=== PATIENT | female | born 1965 | race Caucasian/White ===

== ENCOUNTER → 2018-06-05 | Outpatient (CLI) | payer OTHER | LOC: MAMMO 08:07 | PROVIDERS: ATTEND Obstetrics & Gynecology | DX: Z12.31 Encounter for screening mammogram for malignant neoplasm of breast (principal) | CPT/HCPCS: 77067 ==

== ENCOUNTER 2019-05-16 18:59 | Emergency (ER) | payer BC, OTHER ==
[~2019-05-16] VITALS: Ht 157.5 cm; Wt 99.8 kg
--- OUTSIDE RECORDS SUMMARY | 2019-05-16 19:03 | XMS REPORT ---
[facility] Address Unknown Phone Unavailable Care Team Providers Care Wedding Coordinator Name Role Phone Ming DALY Unavailable Unavailable TIMO, CHIQUI Unavailable Unavailable Problems This patient has no known problems. Allergies, Adverse Reactions, Alerts This patient has no known allergies or adverse reactions. Medications This patient has no known medications. Results Test Description Test Time Test Comments Text Results Atomic Results Result Comments MAMMOGRAPHY DIGITAL SCR BILAT 2018-06-05 09:37:00 [place] [address] Patient Name: SELINA VALENZUELA MR #: [id number] : 1965 Age/Sex: 52/F Req #: [id number] Adm Physician: Ordered by: TIFFANIE DALY M.D. Report #: [id number] Location: MAMMO Room/Bed: Procedure: [id number] MG/MAMMOGRAPHY DIGITAL SCR BILAT Exam Date: 06/05/18 Exam Time: 0900 REPORT STATUS: Signed #[id number] - MGSCRBIL #BILATERAL DIGITAL SCREENING MAMMOGRAM WITH CAD: 06/05/2018 CLINICAL: Routine screening. Comparison is made to exams dated: 05/29/2017 mammogram and 05/15/2016 mammogram - [facility]. Current study contains 4 films. The tissue of both breasts is heterogeneously dense. This may lower the sensitivity of mammography. Current study was also evaluated with a Computer Aided Detection (CAD) system. There are benign calcifications in both breasts. There also are benign densities in both breasts. Additionally there is a biopsy clip in the right breast. No significant masses, calcifications, or other findings are seen in either breast. There has been no significant interval change. IMPRESSION: BENIGN There is no mammographic evidence of malignancy. A 1 year screening mammogram is recommended. The patient will be notified by letter of the results. Reta Tomlin Jr., D.O. cw/:06/10/2018 11:44:31 Special Education Math Teacher: Lyndsay MARMOLEJO)(Donald), [facility] letter sent: Compared to Prior B9 Mammogram BI-RADS: 2 Benign Dictated By: RETA TOMLIN DO 1144 Transcribed By: KEERTHI on 06/10/18 1144 COPY TO: TIFFANIE DALY M.D. MAMMOGRAPHY DIGITAL SCR BILAT [place] [address] Patient Name: SELINA VALENZUELA MR #: [id number] : 1965 Age/Sex: 51/F Req #: [id number] [facility] Physician: Ordered by: CHIQUI GREENWOOD MD Report #: [id number] Location: MAMMO Room/Bed: Procedure: [id number] MG/MAMMOGRAPHY DIGITAL SCR BILAT Exam Date: 05/29/17 Exam Time: 0810 REPORT STATUS: Signed #[id number] - MGSCRBIL #BILATERAL DIGITAL SCREENING MAMMOGRAM WITH CAD: 05/29/2017 CLINICAL: Routine screening. Comparison is made to exams dated: 05/15/2016 mammogram, 05/09/2015 mammogram and 05/09/2014 mammogram - [facility]. Current study contains 5 films. The tissue of both breasts is heterogeneously dense. This may lower the sensitivity of mammography. Current study was also evaluated with a Computer Aided Detection (CAD) system. There are benign calcifications in both breasts. There also are benign densities in both breasts. Additionally there is a biopsy clip in the right breast. No significant masses, calcifications, or other findings are seen in either breast. There has been no significant interval change. IMPRESSION: BENIGN The re is no mammographic evidence of malignancy. A 1 year screening mammogram is recommended. The patient will be notified by letter of the results. Reta kimbrough/keerthi:06/04/2017 08:35:09 Special Education Math Teacher: Lyndsay BLOCK(R)(M), [facility] letter sent: Compared to Prior B9 Mammogram BI-RADS: 2 Benign Dictated By: RETA TOMLIN DO Transcribed By: KEERTHI on 06/04/17834 COPY TO: CHIQUI GREENWOOD MD
[2019-05-16] MEDS ORDERED: KETOROLAC TROMETHAMINE 60 MG/2 ML VIAL ONE (19:30)
[2019-05-16] MEDS: KETOROLAC TROMETHAMINE 60 MG/2 ML VIAL IM ONE (19:30)
[2019-05-16] MEDS: DIPHENHYDRAMINE HCL 25 MG CAP PO ONE (19:49)
[2019-05-16] MEDS ORDERED: DIPHENHYDRAMINE HCL 25 MG CAP ONE (19:50)
[2019-05-16] MEDS ORDERED: CYCLOBENZAPRINE HCL 10 MG TAB ONE (20:46)
[2019-05-16] MEDS ORDERED: HYDROCODONE/APAP 5MG-325MG TAB ONE (20:47)
[2019-05-16] MEDS: HYDROCODONE/APAP 10MG-325MG TAB PO ONE (20:48)
[2019-05-16] MEDS: CYCLOBENZAPRINE HCL 10 MG TAB PO ONE (20:49)
--- NOTE | 2019-05-16 20:58 | Diagnostic Imaging Report ---
EXAM: CT Abdomen and Pelvis WITHOUT contrast INDICATION: Right-sided back pain COMPARISON: None. TECHNIQUE: Abdomen and pelvis were scanned utilizing a multidetector helical scanner from the lung base to the pubic symphysis without administration of IV contrast. Absence of intravenous contrast decreases sensitivity for detection of focal lesions and vascular pathology. Coronal and sagittal reformations were obtained. Routine protocol was performed. IV CONTRAST: None ORAL CONTRAST: None COMPLICATIONS: None RADIATION DOSE: Total DLP: 871 mGy*cm Estimated effective dose: (DLP x 0.015 x size factor) mSv CTDIvol has been reviewed. It is below the limits set by the Radiation Protocol Committee (RPC). Dose modulation, iterative reconstruction, and/or weight based adjustment of the mA/kV was utilized to reduce the radiation dose to as low as reasonably achievable. FINDINGS: LINES and TUBES: None. LOWER THORAX: Subtle focal thickening of the left lower pulmonary fissure, likely a fissural lymph nodes. HEPATOBILIARY: A 9 mm hypodensity in the left hepatic lobe is too small to characterize, likely benign. No biliary ductal dilation. GALLBLADDER: There are cholecystectomy clips. SPLEEN: No splenomegaly. PANCREAS: No focal masses or ductal dilatation. ADRENALS: No adrenal nodules KIDNEYS/URETERS: No hydronephrosis. No cystic or solid mass lesions. No stones. GI TRACT: No abnormal distention, wall thickening, or evidence of bowel obstruction. Small duodenal diverticulum. Colonic diverticuli without diverticulitis. Appendix is normal. PELVIC ORGANS/BLADDER: Unremarkable. LYMPH NODES: No lymphadenopathy. VESSELS: Unremarkable. PERITONEUM / RETROPERITONEUM: No free air or fluid. BONES: There are degenerative changes in the spine, worst at L5-S1. SOFT TISSUES: There is a tiny fat containing para-umbilical hernia. IMPRESSION: 1. No acute CT abnormality in the abdomen and pelvis on this limited noncontrast CT. 2. Degenerative changes in the lumbar spine, worst at L5-S1. Signed by: Jerman Huber DO on 05/16/2019 8:54 PM
== END 2019-05-16 21:34 | disposition home or self-care (01) ==
LOC: FSED 18:59
DX: M47.816 Spondylosis without myelopathy or radiculopathy, lumbar region (principal); Z88.5 Allergy status to narcotic agent; Z88.0 Allergy status to penicillin
CPT/HCPCS: 74176; 81003; 99283; J1885

== ENCOUNTER → 2019-05-28 | Outpatient (CLI) | payer OTHER ==
--- NOTE | 2019-06-09 08:45 | Diagnostic Imaging Report ---
#[id number] - MGSCRBIL #BILATERAL DIGITAL SCREENING MAMMOGRAM WITH CAD: 05/28/2019 CLINICAL: Routine screening. Comparison is made to exams dated: 06/05/2018 mammogram and 05/29/2017 mammogram - [facility]. There are scattered fibroglandular elements in both breasts. Current study was also evaluated with a Computer Aided Detection (CAD) system. There are benign calcifications in both breasts. There also is a biopsy clip in the right breast. No significant masses, calcifications, or other findings are seen in either breast. There has been no significant interval change. IMPRESSION: BENIGN There is no mammographic evidence of malignancy. A 1 year screening mammogram is recommended. The patient will be notified by letter of the results. RONNY alcaraz/capo:06/07/2019 10:31:19 Functional Tester Typewriters: Lyndsay BLOCK(Suzi)(Donald), [facility] letter sent: Normal Exam Mammogram BI-RADS: 2 Benign
== END ==
LOC: MAMMO 07:53
PROVIDERS: ATTEND Obstetrics & Gynecology
DX: Z12.31 Encounter for screening mammogram for malignant neoplasm of breast (principal)
CPT/HCPCS: 77067

== ENCOUNTER → 2020-06-07 | Outpatient (CLI) | payer OTHER | LOC: MAMMO 08:27 | PROVIDERS: ATTEND Obstetrics & Gynecology | DX: Z12.31 Encounter for screening mammogram for malignant neoplasm of breast (principal) | CPT/HCPCS: 77067 ==

== ENCOUNTER → 2021-05-31 | Outpatient (CLI) | payer OTHER | LOC: MAMMO 08:44 | PROVIDERS: ATTEND Obstetrics & Gynecology | DX: Z12.31 Encounter for screening mammogram for malignant neoplasm of breast (principal) | CPT/HCPCS: 77067 ==

== ENCOUNTER → 2022-06-05 | Outpatient (CLI) | payer OTHER | LOC: MAMMO 11:10 | PROVIDERS: ATTEND Obstetrics & Gynecology | DX: Z12.31 Encounter for screening mammogram for malignant neoplasm of breast (principal) | CPT/HCPCS: 77067 ==